=== PATIENT | male | born 1965 | race Hispanic/Latino ===

== ENCOUNTER 2021-08-12 12:38 | Emergency (ER) | payer SELFPAY ==
[2021-08-12 13:40] VITALS: BP 146/87
--- NOTE | 2021-08-12 15:03 | Emergency Department Report ---
ED N/V/D HPI - General Chief complaint: Nausea/Vomiting/Diarrhea Stated complaint: VOMITTING Time Seen by Provider: 08/12/21 14:50 Source: patient Mode of arrival: Ambulatory Limitations: No Limitations - History of Present Illness Initial comments: Patient presents with nausea, vomiting, and diarrhea. He admits that he was very upset over the weekend. He went out and drank more alcohol than he normally does. He states that he woke up with a hangover. His hangovers usually consist of feeling dehydrated, having vomiting, and diarrhea. Unfortunately, his symptoms have persisted today. He came here ultimately because he really wanted a work note to go back to work. He states that he does not want blood work done. He does not want any imaging done. He states that he just needs a work note to be able to go back to work. He does not want any other intervention. - Related Data Previous Rx's Medication Instructions Recorded Last Taken Type Ondansetron [Zofran ODT TAB] 8 mg PO Q8HR PRN #20 tab.rapdis 08/12/21 Unknown Rx Allergies Allergy/AdvReac Type Severity Reaction Status Date / Time No Known Allergies Allergy Verified 08/12/21 13:40 ED Review of Systems ROS: Stated complaint: VOMITTING Other details as noted in HPI Comment: All other systems reviewed and negative Constitutional: denies: fever Eyes: denies: eye pain ENT: denies: throat pain Respiratory: denies: cough Cardiovascular: denies: chest pain Endocrine: denies: unexplained weight loss Gastrointestinal: as per HPI Genitourinary: denies: dysuria Musculoskeletal: denies: back pain Skin: denies: rash Neurological: denies: headache Hematological/Lymphatic: denies: easy bruising ED Past Medical Hx - Past Medical History Additional medical history: Prior history of alcohol abuse - Family History Family history: no significant - Medications Home Medications: Home Medications Medication Instructions Recorded Confirmed Last Taken Type Ondansetron [Zofran ODT TAB] 8 mg PO Q8HR PRN #20 tab.rapdis 08/12/21 Unknown Rx ED Physical Exam - General Limitations: No Limitations, Other (Pulse ox noted and normal) General appearance: alert, in no apparent distress - Head Head exam: Present: atraumatic, normocephalic, normal inspection - Eye Eye exam: Present: normal appearance, EOMI. Absent: scleral icterus - ENT ENT exam: Present: normal orophraynx, normal external ear exam - Neck Neck exam: Present: normal inspection. Absent: meningismus - Respiratory Respiratory exam: Present: normal lung sounds bilaterally. Absent: respiratory distress - Cardiovascular Cardiovascular Exam: Present: regular rate, normal rhythm - GI/Abdominal GI/Abdominal exam: Present: soft. Absent: distended - Extremities Exam Extremities exam: Present: normal capillary refill. Absent: calf tenderness - Back Exam Back exam: Absent: CVA tenderness (R), CVA tenderness (L) - Neurological Exam Neurological exam: Present: alert, oriented X3, normal gait. Absent: motor sensory deficit - Psychiatric Psychiatric exam: Present: normal affect, normal mood - Skin Skin exam: Present: warm, dry ED Course Vital Signs 08/12/21 13:39 Temperature 98.7 F Pulse Rate 97 H Respiratory 15 Rate Blood Pressure 146/87 O2 Sat by Pulse 97 Oximetry - Reevaluation(s) Reevaluation #1: 08/12/21 15:15 Patient was seen and discharged ED Medical Decision Making - Medical Decision Making Patient presents with nausea, vomiting, and diarrhea after drinking alcohol. By his own admission, he had had alcohol to excess. At this time, he certainly does not have evidence of overt withdrawal. He is not tremulous or tachycardic. We discussed the possibility of pancreatitis and hepatitis along with gastritis and ulcer disease. He vehemently states that he does not want any type of testing. He states that he will return if he has problems. He is willing to follow-up. I have given him a prescription for medications for nausea. We have discussed the risk, benefits, and alternatives of determining whether or not he has any underlying alcoholic liver disease or pancreatitis. He verbalizes understanding. He is able to recite risks. He still declines. He does have the capacity to make this decision at this time. Critical Care Time: No Critical care attestation.: If time is entered above; I have spent that time in minutes in the direct care of this critically ill patient, excluding procedure time. ED Disposition Clinical Impression: Nausea vomiting and diarrhea Disposition: HOME / SELF CARE / HOMELESS Is pt being admited?: No Condition: Stable Instructions: Food Choices to Help Relieve Diarrhea, Adult, Nausea and Vomiting, Adult, Probiotics Additional Instructions: HAVE A BLAND DIET. DRINK FLUIDS. RETURN IF YOU CHANGE YOUR MIND ABOUT BLOOD WORK. SEE A REGULAR DOCTOR FOR RECHECK. Prescriptions: Ondansetron [Zofran ODT TAB] 8 mg PO Q8HR PRN #20 tab.rapdis PRN Reason: Nausea Referrals: PRIMARY CARE, [Referring] - 3-5 Days EMMA RUST MD [Staff Physician] - 3-5 Days
== END 2021-08-12 15:32 | disposition home or self-care (01) ==
LOC: ED 12:38
DX: R11.2 Nausea with vomiting, unspecified (principal); R19.7 Diarrhea, unspecified
CPT/HCPCS: 99281

== ENCOUNTER 2021-10-07 04:00 | Emergency (ER) | payer OTHER ==
[2021-10-07 05:03] LABS: Basophils # (Auto) 0.1 K/mm3 (0.0-0.1); Basophils % (Auto) 0.7 % (0.0-1.8); Eosinophils % (Auto) 0.3 % (0.0-4.3); Hematocrit 48.6 % (35.5-45.6); Hemoglobin 15.8 gm/dl (11.8-15.2); Lymphocytes # (Auto) 2.7 K/mm3 (1.2-5.4); Lymphocytes % (Auto) 31.2 % (13.4-35.0); Mean Corpuscular HGB Conc 32 % (32-34); Mean Corpuscular Volume 94 fl (84-94); Monocytes # (Auto) 0.8 K/mm3 (0.0-0.8); Monocytes % (Auto) 8.8 % (0.0-7.3); Platelet Count 174 K/mm3 (140-440); Red Blood Count 5.18 M/mm3 (3.65-5.03); Red Cell Distribution Width 16.5 % (13.2-15.2)
[2021-10-07 05:20] LABS: Blood Urea Nitrogen 21 mg/dL (9-20); Calcium 8.5 mg/dL (8.4-10.2); Hemolysis Index 15
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
[2021-10-07 05:38] LABS: BUN/Creatinine Ratio 30
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
[2021-10-07 06:17] VITALS: BP 135/70
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
== END 2021-10-07 08:00 ==
LOC: ED 04:00
DX: S09.90XA Unspecified injury of head, initial encounter (principal); F10.129 Alcohol abuse with intoxication, unspecified; F17.200 Nicotine dependence, unspecified, uncomplicated; Y08.89XA Assault by other specified means, initial encounter; Y93.89 Activity, other specified; Y92.89 Other specified places as the place of occurrence of the external cause; Y99.8 Other external cause status
CPT/HCPCS: 36415; 70450; 70486; 72125; 80048; 80320; 85025; 99284; G0480